=== PATIENT | male | born 1975 | race African-American/Black ===

== ENCOUNTER 2018-01-18 23:49 | Emergency (ER) | payer OTHER ==
[~2018-01-18] VITALS: Ht 193 cm; Wt 113.4 kg
[2018-01-18 23:56] VITALS: BP 152/106
[2018-01-19] MEDS ORDERED: Tetanus/Diptheria/Pertussis Vaccine 0.5ml Syr IM ONE
[2018-01-19] MEDS ORDERED: IBUPROFEN600 MG ORAL (01:29)
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
[2018-01-19 01:32] VITALS: BP 149/101
[2018-01-19 01:34] VITALS: BP 149/101
--- NOTE | 2018-01-19 09:26 | Diagnostic Imaging Report ---
Indications: Trauma Technique: Spiral acquisitions obtained through the brain. Angled axial and coronal 5 x 5 mm slices were reconstructed. Total dose length product 1404.24 mGycm. CTDI vol(s) 70.38 mGy. Dose reduction achieved using automated exposure control Comparison: None. Findings: There is air within the right frontal scalp soft tissues, consistent with laceration. No underlying calvarial injury. There is equivocal slight nasal fracture deformity. The sinuses are clear. No acute intracranial hemorrhage or edema, mass effect, or midline shift. Normal size ventricles and extra-axial CSF spaces. Normal saleem-white differentiation. Visualized orbits are unremarkable Impression: Evidence of right frontal scalp laceration Negative for acute intracranial bleed or mass effect Equivocal slight nasal fracture deformity-correlate with clinical findings This agrees with the preliminary interpretation provided overnight by [facility]. The CT scanner at [facility] is accredited by the [employer] and the scans are performed using protocols designed to limit radiation exposure to as low as reasonably achievable to attain images of sufficient resolution adequate for diagnostic evaluation.
== END 2018-01-19 01:34 | disposition home or self-care (01) ==
LOC: EDBD 23:49 → EMR 23:57
DX: S01.81XA Laceration without foreign body of other part of head, initial encounter (principal); V43.52XA Car driver injured in collision with other type car in traffic accident, initial encounter; Y92.414 Local residential or business street as the place of occurrence of the external cause; Z23 Encounter for immunization
CPT/HCPCS: 70450; 90471; 90715; 99284